=== PATIENT | female | born 1970 | race Two or more races ===

== ENCOUNTER → 2024-04-02 | Outpatient (CLI) | payer BC, SELFPAY ==
[2024-04-02 10:36] LABS: Glucose Estimated Average 154 mg/dL (80-131)
[2024-04-02 10:48] LABS: Alanine Aminotransferase 26 U/L (10-49); Albumin, Serum 4.6 gm/dL (3.5-5.0); Albumin/Globulin Ratio 2.2 (1.2-2.2); Alkaline Phosphatase 126 U/L (46-116); Anion Gap 8 (7-16); Aspartate Amino Transferase 21 U/L (0-34); BUN/Creatinine Ratio 16 Ratio (12-20); Bilirubin,Total 0.7 mg/dL (0.3-1.2); Blood Urea Nitrogen 13 mg/dL (9-23); Calcium 9.8 mg/dL (8.3-10.6); Calcium (Corrected) 9.8 mg/dL (8.5-10.1); Carbon Dioxide 25.9 mMol/L (20.0-31.0); Chloride 104 mMol/L (98-107); Cholesterol 251 mg/dL (132-200); Creatinine (Component) 0.8 mg/dL (0.6-1.3); Globulin 2.1 gm/dL (2.3-3.5); Glucose 139 mg/dL (74-106); HDL Cholesterol 62 mg/dL (40-60); LDL Cholesterol,Calculated 161 mg/dL (0-130); Osmolality,Calculated 277 (275-295); Potassium 4.5 mMol/L (3.4-5.1); Sodium 138 mMol/L (136-145); Thyroid Stimulating Hormone 2.23 uIU/mL (0.55-4.78); Total Protein 6.7 gm/dL (5.7-8.2); Triglycerides 140 mg/dL (30-150); eGFR > 60 See Note
== END | disposition home or self-care (01) ==
PROVIDERS: PCP Family Medicine; Referring Provider Family Medicine; Visit Provider Family Medicine
DX: E11.65 Type 2 diabetes mellitus with hyperglycemia (principal); E03.9 Hypothyroidism, unspecified
CPT/HCPCS: 36415; 80053; 80061; 83036; 84443

== ENCOUNTER → 2024-04-07 | Outpatient (CLI) | payer BC, SELFPAY ==
--- NOTE | 2024-04-07 09:23 | XR_ITS ---
Examination: PA lateral chest 2 views TECHNIQUE: Upright PA lateral chest 2 views INDICATION: Wheezing today. FINDINGS: Suspicious for early right base pneumonia Normal heart size The osseous structures are intact IMPRESSION: Suspicious for early right base pneumonia
== END | disposition home or self-care (01) ==
LOC: SDIM 09:01
PROVIDERS: PCP Student in an Organized Health Care Education/Training Program; Referring Provider Student in an Organized Health Care Education/Training Program; Visit Provider Student in an Organized Health Care Education/Training Program
DX: R06.2 Wheezing (principal)
CPT/HCPCS: 71046

== ENCOUNTER → 2024-07-06 | Outpatient (CLI) | payer BC, SELFPAY ==
--- NOTE | 2024-07-06 09:48 | XR_ITS ---
Examination: PA lateral chest 2 views TECHNIQUE: Upright PA lateral chest 2 views Exam date and time: July 06, 2024 0956 hours Comparison April 07, 2024 INDICATIONS: Coughing one month. FINDINGS: Basilar bronchitis pattern Normal heart size No lobar pneumonia IMPRESSION: Basilar bronchitis pattern
[2024-07-06 10:26] LABS: Quantiferon-TB* See Sep Rpt
[2024-07-06 12:54] LABS: Cocci Serology, IgM Negative (Negative)
[2024-07-07 13:10] LABS: Cocci Serology, IgG Negative (Negative)
== END | disposition home or self-care (01) ==
LOC: CDIM 09:40
PROVIDERS: PCP Family Medicine; Referring Provider Student in an Organized Health Care Education/Training Program; Visit Provider Student in an Organized Health Care Education/Training Program
DX: R05.9 Cough, unspecified (principal)
CPT/HCPCS: 36415; 71046; 86331; 86480; 86635

== ENCOUNTER 2024-12-15 12:13 | Emergency (ER) | payer BC, SELFPAY ==
[2024-12-15 12:31] VITALS: BP 151/89; PULSE 72; RESP 16; TEMP 36.7; O2SAT 97; BMI 31.7
--- NOTE | 2024-12-15 12:40 | XR_ITS ---
Examination: CT brain head without contrast. 2-D sagittal coronal reconstructions Date and time of exam:December 15, 2024, 1257 hrs. Indications: Onset severe head pain with nausea vomiting beginning 3 days ago. CTDI: vol (mGy):47.9. DLP: (mGycm):955. Technique: Multiple CT axial sections of the brain have been obtained, 5 mm slice thickness. Contrast has not been administered. 2-D sagittal, coronal reconstructions have been obtained Low dose protocols were performed. One or more of the following dose reduction techniques were used; automated exposure control, adjustment of the mA and/or KV according to patient size, use of iterative reconstruction technique. Findings: No significant ventricular enlargement. Intra-axial or extra-axial hemorrhage density is not seen. No mass effect or midline shift Basal cisterns are not remarkable. Fourth ventricle is midline. Cranial vault intact. Impression: Negative for acute hemorrhage, mass effect or midline shift Advise clinical correlation follow-up accordingly.
--- NOTE | 2024-12-15 12:41 | PD.EDRME ---
Rapid Medical Screening Exam [facility] Arrival date/time: 12/15/24 12:13 CC: Headache HPI ongoing for the past 3 days with light sensitivity and nausea, took Tylenol this morning probably vomited back up. Patient is insisting on a head CT because a family member had similar complaint 4 months ago and it was not performed on them. I explained to the patient that she has low index of suspicion for any acute finding she states that she still wants to make sure she does not have a sinus or brain infection. Patient has no active vomiting. Is wearing sunglasses. Denies any phonophobia. Patient has a history of diabetes is seen by Dr. Arroyo takes metformin. Chief Complaint: Headache Time Seen by Provider: 12/15/24 12:40 Vital signs: Vital Signs Temperature 98.0 F 12/15/24 12:31 Pulse Rate 72 12/15/24 12:31 Respiratory Rate 16 12/15/24 12:31 Blood Pressure 151/89 H 12/15/24 12:31 Pulse Oximetry (%) 97 12/15/24 12:31 Oxygen Delivery Method Room Air 12/15/24 12:31
--- NOTE | 2024-12-15 13:40 | PD.EDADULT ---
ED General RME/HPI General Chief complaint: Headache Stated complaint: SEVERE HEADACHE; N/V Time Seen by Provider: 12/15/24 12:40 Arrival date/time: 12/15/24 12:13 CC: See rapid triage, the patient is somewhat dramatic, because of the history with the family member. Patient is wearing sunglasses. Pain is an 8 on a 10 scale. RME / HPI RME / HPI narrative: 12/15/24 12:13 CC: Headache HPI ongoing for the past 3 days with light sensitivity and nausea, took Tylenol this morning probably vomited back up. Patient is insisting on a head CT because a family member had similar complaint 4 months ago and it was not performed on them. I explained to the patient that she has low index of suspicion for any acute finding she states that she still wants to make sure she does not have a sinus or brain infection. Patient has no active vomiting. Is wearing sunglasses. Denies any phonophobia. Patient has a history of diabetes is seen by Dr. Arroyo takes metformin. Related Data Home Medications ?Medication ?Instructions ?Recorded ?Confirmed levothyroxine 75 mcg tablet 75 mcg PO QDAY 02/06/24 02/06/24 (Synthroid) metformin 1,000 mg tablet 1,000 mg PO BID 02/06/24 02/06/24 pravastatin 40 mg tablet 40 mg PO QDAY 02/06/24 02/06/24 Previous Rx's ?Medication ?Instructions ?Recorded meloxicam 7.5 mg tablet 7.5 mg PO QDAY #10 tabs 12/15/24 Allergies Allergy/AdvReac Type Severity Reaction Status Date / Time No Known Allergies Allergy Verified 12/15/24 12:16 Review of Systems Review of Systems Narrative Review of Systems: GEN: No fever, no chills, no weight loss EYES: No discharge, no visual changes, no pain HEENT: No ear pain, no congestion, no sore throat PULM: No shortness of breath, no cough, no congestion CV: No chest pain, no dyspnea on exertion, no palpitations GI: No nausea, no vomiting, no diarrhea, no pain, no constipation : No frequency, no urgency, no dysuria MUSC/SKEL: No joint pain, no back pain SKIN: No rash PSYCH: No hallucinations, no depression HEME/LYMPH: No easy bleeding or bruising tendencies NEURO: No weakness, + headache Past Medical History Past Medical History NEUROLOGIC: Negative Neurological Disorders or Seizures CARDIAC: Positive Cardiac Disorders and Hypercholesterolemia; Negative Congestive Heart Failure RESPIRATORY: Negative Chronic Obstructive Pulmonary Disease (COPD) GASTROINTESTINAL: Positive Gastrointestinal Disorders (CONSTIPATION) GENITOURINARY: Negative Genitourinary Disorders or Renal Disease REPRODUCTIVE: Positive Previous Pregnancies MUSCULOSKELETAL: Positive Musculoskeletal Disorders and Arthritis ENDOCRINE: Positive Endocrine Disorders, Diabetes Mellitus Type 2 and Hypothyroidism; Negative Diabetes Mellitus Type 1 HEMATOLOGIC: Negative Blood Disorders OTHER HISTORY: Positive Chicken Pox; Negative Falls, Blood Transfusions, Blood Transfusion Reaction, Anesthesia Reactions, Chemotherapy, MRSA or Cancer Surgical History SURGICAL: Positive Section Social History SMOKING STATUS: Never smoker ED Exam Narrative Physical exam: [General: Obese not in any acute distress Head normocephalic HEENT: Eyes pupils are PERRLA EOMs are intact mouth pink moist membranes uvula is midline swallow symmetrical phonation is normal all of the subsystems of HEENT are within acceptable limits Neck is supple nontender Chest equal chest rise nontender to palpation Respiratory: Clear to auscultation no wheezes crackles or rubs CV: Rate rhythm is regular no murmurs rubs or clicks Abdomen is distended secondary to body habitus soft nontender no masses positive bowel sounds all 4 quadrants Back: No CVA tenderness no spinous process tenderness from cervical spine thoracic and lumbar spine Skin: Intact no petechiae rash induration ulceration or crepitus Extremities: Moving all extremity against resistance cap refill less than 2 seconds neurosensory intact Neuro: Awake alert oriented x3 Glascow coma 15 no focal deficits] Course Course Course Narrative: 1447: After injection of 3 medications patient states her headache is resolved. Will discharge the patient home with meloxicam. Quality Measures none Orders Category Date Time Status CT head/brain wo con Stat Exams 12/15/24 12:40 Completed DiphenhydrAMINE INJ [Benadryl Inj] Med 12/15/24 12:40 Discontinued 25 mg IM X1 ONE Ketorolac Inj [Toradol Inj] Med 12/15/24 12:40 Discontinued 30 mg IM X1 ONE Prochlorperazine Inj [Compazine Inj] Med 12/15/24 12:40 Discontinued 10 mg IM X1 ONE Vital Signs Vital signs: Vital Signs Temperature 98.0 F 12/15/24 12:31 Pulse Rate 72 12/15/24 12:31 Respiratory Rate 16 12/15/24 12:31 Blood Pressure 151/89 H 12/15/24 12:31 Pulse Oximetry (%) 97 12/15/24 12:31 Oxygen Delivery Method Room Air 12/15/24 12:31 Discharge Plan Plan Patient Disposition: HOME (Self Care) Patient condition on transfer: Stable Prescriptions/Referrals Prescriptions/Med Rec: New meloxicam 7.5 mg tablet 7.5 mg PO QDAY Qty: 10 0RF No Action pravastatin 40 mg tablet 40 mg PO QDAY Patient Comments: TAKE 1 TABLET BY MOUTH EVERY DAY levothyroxine [Synthroid] 75 mcg tablet 75 mcg PO QDAY metformin 1,000 mg tablet 1,000 mg PO BID Referrals: Deepak Ojeda MD [Physician] - In 1 week Problem List Clinical Impression: Migraine Patient/Caregiver Discharge Instructions Education Materials: ED Headache, Migraine, Classic Additional Instructions: Take the medication as needed follow-up with your primary care provider if there is worsening of symptoms in spite of these interventions return the emergency room for reevaluation. Print Language: Estonian Stand Alone Forms: Khadra Award Info., Patient Portal Info Letter, Work/School Release PA/BUSINESS OPERATIONS COORDINATOR Supervising Physician PA/BUSINESS OPERATIONS COORDINATOR Supervising Physician: Alexis Tapia ENP MDM Medical Records Reviewed [facility] Meds/Rx Considered, not Ordered None Labs/Rad/Tests considered, not Ordered None EKG EKG not done Lab Interpretation Labs: none Imaging Provider imaging interpretation(s): CT of the head is interpreted by me read by radiology as negative for any acute finding Medication Administration(s) Medication Administration History Discontinued Medications Diphenhydramine HCl (Diphenhydramine Inj 50 Mg/Ml Vial) 25 mg IM X1 ONE Stop: 12/15/24 12:41 Last Admin: 12/15/24 14:15 Dose: 25 mg Documented By: NAJMA Ketorolac Tromethamine (Ketorolac Inj 60 Mg/2 Ml Vial) 30 mg IM X1 ONE Stop: 12/15/24 12:41 Last Admin: 12/15/24 14:15 Dose: 30 mg Documented By: NAJMA Prochlorperazine Edisylate (Prochlorperazine Inj 5 Mg/Ml Vial 2 Ml) 10 mg IM X1 ONE; Protocol Stop: 12/15/24 12:41 Last Admin: 12/15/24 14:16 Dose: 10 mg Documented By: NAJMA
[2024-12-15] MEDS: KETOROLAC INJ 60 MG/2 ML VIAL 30 MG IM (14:15)
[2024-12-15] MEDS: PROCHLORPERAZINE INJ 5 MG/ML VIAL 2 ML 10 MG IM (14:16)
[2024-12-15 15:15] VITALS: BP 135/80; PULSE 67; RESP 20; TEMP 36.4; O2SAT 98
== END 2024-12-15 15:15 | disposition home or self-care (01) ==
LOC: SERX 15:07
PROVIDERS: Emergency Provider Emergency Medicine; PCP Family Medicine
DX: G43.909 Migraine, unspecified, not intractable, without status migrainosus (principal)
CPT/HCPCS: 70450; 96372; 99283; J0780; J1200; J1885